=== PATIENT | female | born 1995 ===

== ENCOUNTER 2020-09-01 21:21 | Outpatient (REF) | payer OTHER, SELFPAY ==
[2020-09-03 12:23] LABS: COVID-19 RT-PCR UVMMC Result Negative (Negative)
== END 2020-09-01 21:22 | disposition home or self-care (01) ==
LOC: NCHCN 21:21
PROVIDERS: Visit Provider Nurse Practitioner Family
DX: Z20.822 Contact with and (suspected) exposure to COVID-19 (principal); R51.9 Headache, unspecified
CPT/HCPCS: U0003